=== PATIENT | female | born 1940 | race Caucasian/White ===

== ENCOUNTER → 2016-09-29 | Outpatient (CLI) | payer MEDICARE, BC ==
[2016-09-29 16:14] LABS: HEMATOCRIT 41.8 % (37.0-47.0); HEMOGLOBIN 13.5 g/dl (12.5-16.0); MEAN CELL VOLUME 89 fl (80.0-100.0); MEAN CORPUSCULAR HEMOGLOBIN 29 pg (27.0-31.0); MEAN CORPUSCULAR HGB CONC 32 g/dl (33.0-37.0); MEAN PLATELET VOLUME 10.2 fl (7.4-10.4); PLATELET COUNT 230 K/mm3 (130-400); RED BLOOD COUNT 4.72 M/mm3 (4.10-5.30); REDCELL DISTRIBUTION WIDTH-CV 14.2 % (11.5-14.5); WHITE BLOOD COUNT 8.2 K/mm3 (4.8-10.8)
[2016-09-29 16:39] LABS: ERYTHROCYTE SEDIMENTATION RATE 13 mm/hr (0-30)
[2016-09-29 18:20] LABS: SYNOVIAL FL. MONONUCLEAR 72.2 % (0-75); SYNOVIAL FL. POLYMORPHONUCLEAR 27.8 % (0-25); SYNOVIAL FLUID WBC 2336 /mm3 (200-600)
[2016-09-29 18:22] LABS: SYNOVIAL FLUID APPEARANCE CLOUDY; SYNOVIAL FLUID COLOR AMBER
[2016-09-29 18:38] LABS: GLUCOSE,SYNOVIAL FLUID 105 mg/dL
[2016-10-01 11:02] LABS: SYN APPEARANCE Cloudy (()); SYN COLOR Orange (())
[2016-11-17 08:10] LABS: AFB CULTURE SHIP/H XXX
== END ==
LOC: COL.LAB 15:18
PROVIDERS: Physician Assistant
DX: M25.561 Pain in right knee (principal); Z98.890 Other specified postprocedural states

== ENCOUNTER → 2016-11-14 | Outpatient (CLI) | payer MEDICARE, BC | LOC: COL.LAB 12:07 | DX: Z01.812 Encounter for preprocedural laboratory examination (principal); M25.861 Other specified joint disorders, right knee ==

== ENCOUNTER → 2017-03-16 | Outpatient (CLI) | payer MEDICARE, BC | LOC: COL.LAB 14:48 | DX: Z01.812 Encounter for preprocedural laboratory examination (principal) ==

== ENCOUNTER → 2017-03-30 | Outpatient (REF) ==
[2017-03-30 18:42] LABS: BASO # 0.1 (0.0-0.2); BASO % 0.3 % (0.0-2.0); EOS # 0.2 (0.0-0.7); GRAN # 12.2 (1.4-6.5); GRAN % 79.4 % (42.2-75.2); LYMPH # 1.6 (1.2-3.4); LYMPH % 10.1 % (20.0-51.0); MEAN CELL VOLUME 90 fl (80.0-100.0); MEAN CORPUSCULAR HGB CONC 32 g/dl (33.0-37.0); MEAN PLATELET VOLUME 10.2 fl (7.4-10.4); MONO # 1.3 (0.1-0.6); MONO % 8.5 % (1.7-9.3); PLATELET COUNT 290 K/mm3 (130-400); RED BLOOD COUNT 3.54 M/mm3 (4.10-5.30); REDCELL DISTRIBUTION WIDTH-CV 14.4 % (11.5-14.5); WHITE BLOOD COUNT 15.3 K/mm3 (4.8-10.8)
[2017-03-30 18:43] LABS: HEMATOCRIT 31.8 % (37.0-47.0); HEMOGLOBIN 10.3 g/dl (12.5-16.0); MEAN CORPUSCULAR HEMOGLOBIN 29 pg (27.0-31.0)
[2017-03-30 18:59] LABS: INR 1.1 (0.8-3.0)
== END ==
LOC: ZMSC 18:31
PROVIDERS: Orthopaedic Surgery
DX: Z01.89 Encounter for other specified special examinations (principal)
CPT/HCPCS: P9016

== ENCOUNTER → 2017-04-21 | Outpatient (CLI) | payer MEDICARE, BC | LOC: ZCOL.LAB 17:05 | DX: Z47.1 Aftercare following joint replacement surgery (principal) ==